=== PATIENT | female | born 1970 | race Caucasian/White ===

== ENCOUNTER 2016-06-24 08:04 | Emergency (ER) | payer OTHER ==
[~2016-06-24] VITALS: Ht 157.5 cm; Wt 90.7 kg
[~2016-06-24 08:04] MED LIST: AUGMENTIN 875-1 EACH PO; HYDROCODON-ACE1 EAC2 PO
[2016-06-24 08:09] VITALS: BP 100/70
--- NOTE | 2016-06-24 08:13 | ED ANIMAL BITE/WOUND CHECK ---
History of Present Illness General Chief Complaint: Suture Removal/Wound Recheck Stated Complaint: SUTURE REMOVAL Source: patient, old records Exam Limitations: no limitations Vital Signs & Intake/Output Vital Signs & Intake/Output Vital Signs Date Time Temp Pulse Resp B/P Pulse O2 O2 Flow FiO2 Ox Delivery Rate 06/24 0809 97.4 68 20 100/70 100 Room Air Allergies Coded Allergies: No Known Allergies (06/13/16) Reconcile Medications Amoxicillin/Potassium Clav (Augmentin 875-125 Tablet) 875 MG-125 MG TABLET 1 TAB PO BID bite/laceration Hydrocodone/Acetaminophen (Hydrocodon-Acetaminophen 5-325) 5 MG-325 MG TABLET 1-2 TAB PO Q4-6 PRN PRN pain Triage Note: SUTURE REMOVAL FROM HEAD Triage Nurses Notes Reviewed? yes Onset: Abrupt Duration: day(s): (), better Timing: recent history Injury Environment: home Severity: mild Severity Numbers: 5 No Modifying Factors: none Associated Symptoms: DENIES HPI: 45-year-old female presents emergency room for evaluation and staple removal status post sustaining laceration to the top of her head 10 days ago requiring 5 janae. Patient denies any complications since. She denies any discharge fever chills or headache she is without any other complaints at this time. (MELVI BORJA) Past History Travel History Traveled to [place] past 21 day No Medical History Any Pertinent Medical History? see below for history Endocrine: hypothyroidism Tetanus Vaccine: 06/13/16 Surgical History Surgical History: non-contributory Psychosocial History What is your primary language Bulgarian Tobacco Use: Never used ETOH Use: occasional use Illicit Drug Use: denies illicit drug use Family History Hx Contributory? No (MELVI BORJA) Review of Systems Review of Systems Constitutional: Reports: see HPI. All Other Systems: Reviewed and Negative Comments Review of systems: See HPI, All other systems negative. Constitutional, no chills no fever, no malaise HEENT:no sore throat no congestion, no ear pain Cardiovascular: No chest pain , no palpitation Skin,no rashes, no change in skin Respiratory: No dyspnea no cough GI: No nausea no vomiting, no diarrhea : No dysuria Muscle skeletal: No joint painno back pain, no neck pain, Neurologic: No numbness no confusion, no headache Psych: No stress Heme/endocrine: No bruising no bleeding Immunology: No lymphadenopathy (MELVI BORJA) Physical Exam Physical Exam General Appearance: well developed/nourished, no apparent distress, alert, awake Comments: Well-developed well-nourished patient in no apparent distress. HEENT: [place] 5 noted to the scalp there is no surrounding signs of infection no erythema induration or fluctuance extraocular motion intact Neck: Supple, FROM, Back: FROM, Nontender Cardiovascular: Regular rate and rhythms no murmurs rubs Respiratory: No respiratory distress. Patient speaking in full complete sentences. Extremities: full range of motion Neuro: Alert and oriented x3 Skin: Warm & dry;No appreciable rash on exposed skin Psych: Mood affect normal, normal memory normal judgment. (MELVI BORJA) Progress Differential Diagnosis: cellulitis Plan of Care: Janae 5 removed by me there is no wound dehiscence. pt tolerated procedure well (MELVI BORJA) Departure Departure Time of Disposition: 812 Disposition: HOME OR SELF CARE Condition: Stable Clinical Impression Primary Impression: Removal of staple Referrals: PATIENT HAS NO PRIMARY CARE DR (PCP/Family) Additional Instructions: Follow-up with her primary care physician or return with any concerns Departure Forms: Customer Survey General Discharge Information (MELVI BORJA) PA/INDUSTRIAL ACCOUNTANT Co-Sign Statement Statement: ED Attending supervision documentation- [] I saw and evaluated the patient. I have also reviewed all the pertinent lab results and diagnostic results. I agree with the findings and the plan of care as documented in the PA's/INDUSTRIAL ACCOUNTANT's documentation. [X] I have reviewed the ED Record and agree with the PA's/INDUSTRIAL ACCOUNTANT's documentation. [] Additions or exceptions (if any) to the PAs/INDUSTRIAL ACCOUNTANT's note and plan are summarized below: [] (HARRIS TAMAYO,[email or web address])
== END 2016-06-24 08:28 ==
LOC: ERH 08:04
DX: Z48.02 Encounter for removal of sutures (principal)
CPT/HCPCS: 99281